=== PATIENT | female | born 1955 | race Caucasian/White ===

== ENCOUNTER 2016-09-14 15:00 | Emergency (ER) | payer MEDICARE, MEDICAID ==
[~2016-09-14] VITALS: Ht 162.6 cm; Wt 145.5 kg
[2016-09-14] MEDS ORDERED: NS IV 500 ML 500 ML IV SCH (15:25)
[2016-09-14] MEDS: NITROGLYCERIN SUBLINGUAL 0.4 MG (NITROQUICK) TABLET SL PRN ×2 (15:30→15:40)
--- NOTE | 2016-09-14 15:48 | NUR ---
STILL RATES CHEST DISCOMFORT AT "6" AFTER 2ND NTG TAB. NS 500 ML NOW INFUSED.
[2016-09-14] MEDS ORDERED: ONDANSETRON 2 MG/ML (Z0FRAN) 2 ML VIAL IV ONE (15:55)
[2016-09-14] MEDS ORDERED: morphine INJ 4 MG/ML 1 ML SYRINGE IV ONE (15:55)
[2016-09-14 16:03] LABS: BASOPHILS % (AUTO) 0 % (0-2); EOSINOPHILS # (AUTO) 0.2 10^3uL; EOSINOPHILS % (AUTO) 3 % (0-4); LYMPHOCYTES # (AUTO) 1.9 X10^3; MEAN CORPUSCULAR HEMOGLOBIN 27.9 PG (26.0-34.0); MEAN CORPUSCULAR HGB CONC 31.9 g/dL (31.0-37.0); MEAN CORPUSCULAR VOLUME 87 FL (80-100); MEAN PLATELET VOLUME 11.5 FL (6.0-9.5); MONOCYTES # (AUTO) 0.6 X10^3; MONOCYTES % (AUTO) 7 % (3-11); NEUTROPHILS # (AUTO) 5.4 X10^3; NEUTROPHILS % (AUTO) 66 % (51-67); PLATELET COUNT 190 10^3uL (150-450); WHITE BLOOD COUNT 8.13 10^3uL (4.0-11.0)
[2016-09-14 16:13] LABS: ALBUMIN 3.7 g/dL (3.4-5.0); ALKALINE PHOSPHATASE 141 U/L (38-126); ANION GAP 17.2 MEQ/L (3-15); BUN/CREATININE RATIO 24 (10-20); CALCULATED IONIZED CALCIUM 4.2 mg/dL (3.8-4.6)
--- NOTE | 2016-09-14 16:13 | NUR ---
NOW RATES DISCOMFORT IN CHEST AT "2" AND SAYS HEADACHE BETTER NOW, TOO.
--- NOTE | 2016-09-14 16:15 | NUR ---
PATIENT REQUESTING ICED WATER TO DRINK. DR. CASTILLO INFORMED OF PT'S REQUEST - NO WATER FOR NOW.
[2016-09-14] MEDS ORDERED: morphine INJ 2 MG/ML 1 ML SYRINGE IV PRN (16:35)
[2016-09-14 17:24] VITALS: BP 113/38
== END 2016-09-14 17:25 | disposition home or self-care (01) ==
LOC: EDUNIT# 15:00 → ED 15:02
DX: R07.89 Other chest pain (principal)
CPT/HCPCS: 36415; 71010; 80053; 83880; 84484; 85025; 93005; 96374; 96375; 99285; A9270; J2270; J2405; 93010; 99284

== ENCOUNTER → 2016-09-14 | Outpatient (CLI) | payer MEDICARE, MEDICAID | LOC: EMS 14:55 | PROVIDERS: ATTEND Emergency Medicine | DX: R07.89 Other chest pain (principal) ==

== ENCOUNTER → 2016-09-22 | Outpatient (REF) | payer MEDICARE, MEDICAID ==
[2016-09-22 13:34] LABS: ALBUMIN 3.8 g/dL (3.4-5.0); ANION GAP 17.6 MEQ/L (3-15); CALCULATED IONIZED CALCIUM 4.2 mg/dL (3.8-4.6)
== END ==
LOC: LAB 13:08
PROVIDERS: ATTEND Family Medicine
DX: E11.9 Type 2 diabetes mellitus without complications (principal); R74.8 Abnormal levels of other serum enzymes
CPT/HCPCS: 80053; 82306; 82977

== ENCOUNTER → 2016-11-18 | Outpatient (REF) | payer MEDICARE, MEDICAID ==
[~2016-11-18] MED LIST: ALLO300T2 PO; ASPI-245 PO; ASPI325T4 PO; ATN50T PO; ATOR80TA PO; BUSP15TA55; BUSP15TA55 PO; CARV12.5 PO; CARV3.12T PO; CEPH-331 PO; CHOL200044 PO; CLOB60CR4 TOP; CLOP75TA3 PO; CRV6.25T PO; DICL100G13 TOP; DILT180C81 PO; DLT180CCR; DLT180CCR PO; DOCU100C8 PO; FENT1PAT6 TD; FERR-74 PO; FERR325T5 PO; FLC100T PO; FRSM40T PO; FURO-124 PO; FURO40TA4 PO; FURO80TA62 PO; HALO15OI4 TOP; HYDR-2651 PO; HYDR-3702 PO; HYDR-3754 PO; IMIP50TA4 PO; INSA10V SC; INSASP1U SQ; INSU100V19 SQ; KCL10CCR PO; LACT10SO60 PO; LEVO112T4 PO; LEVO112T5 PO; LOSA25TA2 PO; LSRT50T; MAGN400O7 PO; MECL-105 PO; MIRALAX 17 GM P17 GM PO; MULT-618 PO; NFLYR75C PO; NFMET1000 PO; OMEP20TA PO; ONDA-50 PO; ONDAN4ODT PO; POLY17PO2 PO; PRAV40TA2 PO; PRAV80TA PO; PRED20TA PO; SCR1T PO; SERT50TA9 PO; SPRN25T PO
[2016-11-18 14:11] LABS: ALBUMIN 3.8 g/dL (3.4-5.0); ANION GAP 18.8 MEQ/L (3-15); CALCULATED IONIZED CALCIUM 4.3 mg/dL (3.8-4.6)
== END ==
LOC: LAB 13:31
PROVIDERS: ATTEND Family Medicine
DX: I50.32 Chronic diastolic (congestive) heart failure (principal); E11.9 Type 2 diabetes mellitus without complications; E56.8 Deficiency of other vitamins; E55.9 Vitamin D deficiency, unspecified
CPT/HCPCS: 80053; 82306; 82977; 83036

== ENCOUNTER → 2016-12-02 | Outpatient (CLI) | payer MEDICARE, MEDICAID ==
--- NOTE | 2016-12-02 11:13 | Diagnostic Imaging Report ---
PROCEDURE: US Abdomen, limited. TECHNIQUE: Multiple realtime grayscale images were obtained over the abdomen in various projections. INDICATION: Abnormal lab value. FINDINGS: There is hepatomegaly with diffuse increased echogenicity of the liver consistent with fatty change. Liver measures approximately 20 cm in long axis. There is a cyst in the left lobe measuring 2 cm. Gallbladder appears normal with no gallstones or wall thickening. Common bile duct measures 4 mm. Portal and hepatic vein are patent. The pancreas is not well visualized. There is no ascites. The right kidney appears normal. IMPRESSION: 1. Hepatomegaly with hepatic steatosis. 2. Bile ducts are not dilated with normal gallbladder. Dictated by: Dictated on workstation # [id number]
--- NOTE | 2016-12-02 12:37 | Diagnostic Imaging Report ---
INDICATION: Back pain. FINDINGS: Study is quite limited due to morbid obesity. Generator was maxed out for crosstable imaging. There does appear to be good alignment of vertebral bodies. Body height is well maintained. Facets show good alignment. No evidence of pars defects. Mild degenerative facet disease noted. Mild hypertrophic lipping of the endplates. Pedicles appear intact. SI joints show mild sclerosis. IMPRESSION: Limited study due to morbid obesity. Mild degenerative disc and facet disease demonstrated. Dictated by: Dictated on workstation # [id number]
== END ==
LOC: RAD 09:23
PROVIDERS: ATTEND Family Medicine
DX: R74.8 Abnormal levels of other serum enzymes (principal); M54.16 Radiculopathy, lumbar region; I50.32 Chronic diastolic (congestive) heart failure; I47.1 Supraventricular tachycardia; I10 Essential (primary) hypertension; I65.21 Occlusion and stenosis of right carotid artery; K76.0 Fatty (change of) liver, not elsewhere classified
CPT/HCPCS: 72110; 76705; 93306